=== PATIENT | female | born 1990 | race African-American/Black ===

== ENCOUNTER 2019-11-04 22:26 | Emergency (ER) | payer SELFPAY ==
[~2019-11-04] VITALS: Ht 162.6 cm; Wt 56.0 kg
[2019-11-05] MEDS ORDERED: IBUPROFEN 600MG TABLET PO ONE (01:45)
[2019-11-05 03:00] VITALS: BP 153/103
== END 2019-11-05 03:19 | disposition home or self-care (01) ==
LOC: ER 22:26
DX: N64.4 Mastodynia (principal)
CPT/HCPCS: 71045; 99283